=== PATIENT | female | born 1970 | race Caucasian/White ===

== ENCOUNTER 2016-03-08 13:17 | Emergency (ER) | payer OTHER ==
[~2016-03-08 13:17] MED LIST: ASPIRIN PO; CIMETIDINE PO; GLUC1000 OR; IBUP600T OR; OMEPPOW18 PO; SIMV40TA2 OR; VICO5TAB OR
--- NOTE | 2016-03-08 14:11 | REP ---
Clinical: Trauma. Technique: Internal rotation, external rotation, and Y view. Findings: Widening to the acromioclavicular joint with periarticular calcifications as well as calcification overlying the humeral tuberosity is similar to chest x-ray dated 03/31/2013 and represents degenerative changes and calcific tendinopathy. There is no evidence for acute fracture or dislocation. Impression: Degenerative changes and evidence for calcific tendinopathy. No acute fracture or dislocation. Signed by Tom Shea MD 03/08/2016 02:03 P
[2016-03-08] MEDS ORDERED: PERCOCET 5MG/325MG TAB As Ordered ONE (14:13)
[2016-03-08] MEDS ORDERED: KETOROLAC 30 MG/ML VIAL (J1885) As Ordered ONE (14:13)
--- NOTE | 2016-03-08 14:46 | EDDOCDS ---
Physician Documentation [facility] Name: Court Nelson Age: 45 yrs Sex: Female : 1970 Arrival Date: 03/08/2016 Time: 13:17 Bed 7 Private MD: Deny Anaya D Disposition: 03/08/16 14:34 Discharged to Home/Self Care. Impression: Calcific tendinitis of left shoulder - - bursitis left shoulder. - Condition is Stable. - Discharge Instructions: Tendinitis, Calcific Tendinitis, Heat Therapy. - Prescriptions for Naprosyn 500 mg Oral Tablet - take 1 tablet by ORAL route 2 times per day take with food; 30 tablet. Percocet 5- 325 mg Oral Tablet - take 1 tablet by ORAL route every 6 hours As needed MDD: 4 tabs; 12 tablet. - Medication Reconciliation, Local Pharmacy Hours form. - Follow up: Deny Anaya; When: 1 week. Follow up: Orthopaedics, [facility]; When: Call to arrange an appointment. - Problem is new. - Symptoms are unchanged. Historical: - Allergies: Avelox (Swelling); Morphine (Vomit); - Home Meds: 1. none - PMHx: none; - PSHx: ; Right femur repair; Hysterectomy; Gastric Bypass; - Social history: Smoking status: Patient states was never smoker of tobacco. No barriers to communication noted, The patient speaks fluent Turkish, Speaks appropriately for age. - Family history: Not pertinent. - : The pt / caregiver states he / she is not on anticoagulants. Home medication list is obtained from the patient. - Exposure Risk Screening:: None identified. 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 5 in. (165.10 cm) (R); Pain 5/10; 14:37 Pain 2/10; ck1 14:37 Pain 2/10; ck1 14:45 BP 119 / 75; Pulse 59; Resp 18; Temp 97.0(O); Pulse Ox 99% on R/A; Pain 2/10; ck1 13:18 Body Mass Index 27.79 (75.75 kg, 165.10 cm) elp MDM: 13:47 Shoulder, Complete Ordered. EDMS 14:10 ketorolac 60 mg IM once ordered. sd1 14:10 oxyCODONE-acetaminophen 5 mg-325 mg 1 tabs PO once ordered. sd1 14:30 Financial registration complete. mm15 14:40 [facility] Payment Agreement was scanned into [employer] and attached to record. mm15 Administered Medications: 14:17 Drug: ketorolac 60 mg [ketorolac 30 mg/mL (1 mL) injection solution (2 mL)] Route: IM; rs3 Site: left gluteus; 14:37 Follow up: Pain 2/10 Adult; Response: No Adverse Reaction; Pain is decreased ck1 14:17 Drug: oxyCODONE-acetaminophen 1 tabs [oxycodone-acetaminophen 5 mg-325 mg tablet (1 rs3 tabs)] Route: PO; 14:37 Follow up: Pain 2/10 Adult; Response: Confirmed pt not driving.; No Adverse Reaction; ck1 Pain is decreased Signatures: Dispatcher [employer] EDMS Liz Horton MD MD sd1 Van Bah RN RN Fior Camacho RN RN ck1 Yasmany Quinn mm15 Radha Hernandez RN rs3 The chart was reviewed and I authenticate all verbal orders and agree with the evaluation and treatment provided.Attachments: 14:40 [facility] Payment Agreement mm15 MTDD
--- NOTE | 2016-03-08 14:46 | EDDOCDS ---
Nurse's Notes [facility] Name: Court Nelson Age: 45 yrs Sex: Female : 1970 Arrival Date: 03/08/2016 Time: 13:17 Bed 7 Private MD: Deny Anaya D Diagnosis: Calcific tendinitis of left shoulder-- bursitis left shoulder Presentation: 03/08 13:30 Presenting complaint: Patient states: was shoveling Thursday and injured left shoulder. bcj denies fall on shoulder. pain increased with lifting / rotation of arm. denies other injuries. Adult Sepsis Screening: The patient does not have new or worsening altered mentation. Systolic blood pressure is greater than 100. Patient has a qSOFA score of 0- Negative Sepsis Screen. Suicide/Homicide risk assessment- the patient denies having any suicidal and/or homicidal ideations and does not present with any other emotional, behavioral or mental health complaints. Status: Patient is not a special service representative or dependent. Transition of care: patient was not received from another setting of care. 13:30 Acuity: SILVIA Level 4 bcj 13:30 Method Of Arrival: Walkin/Carried/Asstd bcj Triage Assessment: 13:33 General: Appears in no apparent distress, comfortable, Behavior is cooperative. Pain: bcj Location: anterior aspect of left shoulder Pain currently is 5 out of 10 on a pain scale. HIV screening NA for this visit Offered previously. 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 none - PMHx: none; - PSHx: ; Right femur repair; Hysterectomy; Gastric Bypass; - Social history: Smoking status: Patient states was never smoker of tobacco. No barriers to communication noted, The patient speaks fluent Mohawk, Speaks appropriately for age. - Family history: Not pertinent. - : The pt / caregiver states he / she is not on anticoagulants. Home medication list is obtained from the patient. - Exposure Risk Screening:: None identified. Screenin:36 Screening information is obtained from the patient. Fall risk: No risks identified. ck1 Assistance ADL's: requires no assistance with activities of daily living. Abuse/DV Screen: The patient / caregiver reports he/she is: not in a situation that causes fear, pain or injury. Nutritional screening: No deficits noted. Advance Directives: Currently, there is no health care proxy. home support is adequate. Assessment: 14:36 General: Appears in no apparent distress, comfortable, Behavior is appropriate for age, ck1 cooperative. Pain: Location: left shoulder Pain currently is 2 out of 10 on a pain scale. Neurological: No deficits noted. Derm: Skin is intact, is healthy with good turgor, Skin is pink, warm & dry. Musculoskeletal: Circulation, motion, and sensation intact Range of motion intact in all extremities. Vital Signs: 13:18 BP 129 / 76; Pulse 64; Resp 16; Temp 98.9; Pulse Ox 100% on R/A; Weight 75.75 kg (R); elp Height 5 ft. 5 in. (165.10 cm) (R); Pain 5/10; 14:37 Pain 2/10; ck1 14:37 Pain 2/10; ck1 14:45 BP 119 / 75; Pulse 59; Resp 18; Temp 97.0(O); Pulse Ox 99% on R/A; Pain 2/10; ck1 13:18 Body Mass Index 27.79 (75.75 kg, 165.10 cm) [facility] Vitals: 13:18 Log In Time: March 08, 2016 at 13:16. [facility] ED Course: 13:18 Patient visited by Cristel Chandler PCA. elp 13:18 Deny Anaya is Private Physician. elp 13:18 Patient moved to Waiting elp 13:19 Patient visited by Cristel Chandler PCA. elp 13:20 Patient moved to Pre RCE elp 13:32 Triage Initiated bcj 13:34 Patient visited by Van Bah, RN. bcj 13:45 Fior Ayala,RN is Primary Nurse. ms18 13:45 Patient moved to 7 ms18 13:59 Liz Horton MD is Attending Physician. sd1 14:03 Patient visited by Liz Horton MD. sd1 14:23 Shoulder, Complete Returned. EDMS 14:33 Deny Anaya is Referral Physician. sd[facility] sd[facility] 14:34 Patient visited by Fior Ayala RN. ck1 14:37 The patient / caregiver is instructed regarding the plan of care and ED course. ck1 14:37 No IV's were initiated during this patient's visit. No procedures done that require ck1 assistance. 14:40 [facility] Payment Agreement was scanned into [employer] and attached to record. mm15 Administered Medications: 14:17 Drug: ketorolac 60 mg [ketorolac 30 mg/mL (1 mL) injection solution (2 mL)] Route: IM; rs3 Site: left gluteus; 14:37 Follow up: Pain 2/10 Adult; Response: No Adverse Reaction; Pain is decreased ck1 14:17 Drug: oxyCODONE-acetaminophen 1 tabs [oxycodone-acetaminophen 5 mg-325 mg tablet (1 rs3 tabs)] Route: PO; 14:37 Follow up: Pain 2/10 Adult; Response: Confirmed pt not driving.; No Adverse Reaction; ck1 Pain is decreased Order Results: Radiology Order: Shoulder, Complete Test: Shoulder, Complete REASON FOR EXAMINATION: Trauma; Clinical: Trauma.; ; Technique: Internal rotation, external rotation, and Y view.; ; Findings:; Widening to the acromioclavicular joint with periarticular calcifications as well; as calcification overlying the humeral tuberosity is similar to chest x-ray dated; 03/31/2013 and represents degenerative changes and calcific tendinopathy. There; is no evidence for acute fracture or dislocation.; ; Impression:; Degenerative changes and evidence for calcific tendinopathy.; No acute fracture or dislocation.; ; ; Signed by; Tom Shea MD 03/08/2016 02:03 P; Outcome: 14:34 Discharge ordered by Provider. sd1 14:37 Discharge Assessment: Patient awake, alert and oriented x 3. No cognitive and/or ck1 functional deficits noted. Patient verbalized understanding of disposition instructions. patient administered narcotics - yes. Pt provided with safe discharge. No special radiology studies were completed. Property :Personal belongings accompany Pt. 14:37 The following High Risk Discharge criteria are identified: None. Discharged to home ck1 ambulatory. Condition: stable. 14:44 Discharge instructions given to patient, Instructed on discharge instructions, follow ck1 up and referral plans. medication usage, Demonstrated understanding of instructions, medications, Pt was receptive of discharge instructions/ teaching. Prescriptions given X 2. 14:45 Patient left the ED. ck1 Signatures: Dispatcher [employer] EDMS Liz Horton MD MD sd1 Van Bah, RN RN Fior CamachoRN RN ck1 Radha Hernandez RN RN rs3 Yasmany Quinn mm15 Cristel Chandler, MICHELLE CHILD CARE WORKER Kim Rabago RN RN ms18 MTDD
--- NOTE | 2016-03-10 15:46 | EDDOCDS ---
Nurse's Notes [facility] Name: Court Nelson Age: 45 yrs Sex: Female : 1970 Arrival Date: 03/08/2016 Time: 13:17 Bed 7 Private MD: Deny Anaya D Diagnosis: Calcific tendinitis of left shoulder-- bursitis left shoulder Presentation: 03/08 13:30 Presenting complaint: Patient states: was shoveling Thursday and injured left shoulder. bcj denies fall on shoulder. pain increased with lifting / rotation of arm. denies other injuries. Adult Sepsis Screening: The patient does not have new or worsening altered mentation. Systolic blood pressure is greater than 100. Patient has a qSOFA score of 0- Negative Sepsis Screen. Suicide/Homicide risk assessment- the patient denies having any suicidal and/or homicidal ideations and does not present with any other emotional, behavioral or mental health complaints. Status: Patient is not a auto service writer or dependent. Transition of care: patient was not received from another setting of care. 13:30 Acuity: SILVIA Level 4 bcj 13:30 Method Of Arrival: Walkin/Carried/Asstd bcj Triage Assessment: 13:33 General: Appears in no apparent distress, comfortable, Behavior is cooperative. Pain: bcj Location: anterior aspect of left shoulder Pain currently is 5 out of 10 on a pain scale. HIV screening NA for this visit Offered previously. 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 none - PMHx: none; - PSHx: ; Right femur repair; Hysterectomy; Gastric Bypass; - Social history: Smoking status: Patient states was never smoker of tobacco. No barriers to communication noted, The patient speaks fluent French, Speaks appropriately for age. - Family history: Not pertinent. - : The pt / caregiver states he / she is not on anticoagulants. Home medication list is obtained from the patient. - Exposure Risk Screening:: None identified. Screenin:36 Screening information is obtained from the patient. Fall risk: No risks identified. ck1 Assistance ADL's: requires no assistance with activities of daily living. Abuse/DV Screen: The patient / caregiver reports he/she is: not in a situation that causes fear, pain or injury. Nutritional screening: No deficits noted. Advance Directives: Currently, there is no health care proxy. home support is adequate. Assessment: 14:36 General: Appears in no apparent distress, comfortable, Behavior is appropriate for age, ck1 cooperative. Pain: Location: left shoulder Pain currently is 2 out of 10 on a pain scale. Neurological: No deficits noted. Derm: Skin is intact, is healthy with good turgor, Skin is pink, warm & dry. Musculoskeletal: Circulation, motion, and sensation intact Range of motion intact in all extremities. Vital Signs: 13:18 BP 129 / 76; Pulse 64; Resp 16; Temp 98.9; Pulse Ox 100% on R/A; Weight 75.75 kg (R); elp Height 5 ft. 5 in. (165.10 cm) (R); Pain 5/10; 14:37 Pain 2/10; ck1 14:37 Pain 2/10; ck1 14:45 BP 119 / 75; Pulse 59; Resp 18; Temp 97.0(O); Pulse Ox 99% on R/A; Pain 2/10; ck1 13:18 Body Mass Index 27.79 (75.75 kg, 165.10 cm) [facility] Vitals: 13:18 Log In Time: March 08, 2016 at 13:16. [facility] ED Course: 13:18 Patient visited by Cristel Chandler PCA. elp 13:18 Deny Anaya is Private Physician. elp 13:18 Patient moved to Waiting elp 13:19 Patient visited by Cristel Chandler PCA. elp 13:20 Patient moved to Pre RCE elp 13:32 Triage Initiated bcj 13:34 Patient visited by Van Bah, RN. bcj 13:45 Fior Ayala,RN is Primary Nurse. ms18 13:45 Patient moved to 7 ms18 13:59 Liz Horton MD is Attending Physician. sd1 14:03 Patient visited by Liz Horton MD. sd1 14:23 Shoulder, Complete Returned. EDMS 14:33 Deny Anaya is Referral Physician. sd1 14:[facility] sd1 14:34 Patient visited by Fior Ayala RN. ck1 14:37 The patient / caregiver is instructed regarding the plan of care and ED course. ck1 14:37 No IV's were initiated during this patient's visit. No procedures done that require ck1 assistance. 14:40 [facility] Payment Agreement was scanned into [employer] and attached to record. mm15 20:17 T-Sheet-- Draft Copy was scanned into [employer] and attached to record. klr Administered Medications: 14:17 Drug: ketorolac 60 mg [ketorolac 30 mg/mL (1 mL) injection solution (2 mL)] Route: IM; rs3 Site: left gluteus; 14:37 Follow up: Pain 2/10 Adult; Response: No Adverse Reaction; Pain is decreased ck1 14:17 Drug: oxyCODONE-acetaminophen 1 tabs [oxycodone-acetaminophen 5 mg-325 mg tablet (1 rs3 tabs)] Route: PO; 14:37 Follow up: Pain 2/10 Adult; Response: Confirmed pt not driving.; No Adverse Reaction; ck1 Pain is decreased Order Results: Radiology Order: Shoulder, Complete Test: Shoulder, Complete REASON FOR EXAMINATION: Trauma; Clinical: Trauma.; ; Technique: Internal rotation, external rotation, and Y view.; ; Findings:; Widening to the acromioclavicular joint with periarticular calcifications as well; as calcification overlying the humeral tuberosity is similar to chest x-ray dated; 03/31/2013 and represents degenerative changes and calcific tendinopathy. There; is no evidence for acute fracture or dislocation.; ; Impression:; Degenerative changes and evidence for calcific tendinopathy.; No acute fracture or dislocation.; ; ; Signed by; Tom Shea MD 03/08/2016 02:03 P; Outcome: 14:34 Discharge ordered by Provider. sd1 14:37 Discharge Assessment: Patient awake, alert and oriented x 3. No cognitive and/or ck1 functional deficits noted. Patient verbalized understanding of disposition instructions. patient administered narcotics - yes. Pt provided with safe discharge. No special radiology studies were completed. Property :Personal belongings accompany Pt. 14:37 The following High Risk Discharge criteria are identified: None. Discharged to home ck1 ambulatory. Condition: stable. 14:44 Discharge instructions given to patient, Instructed on discharge instructions, follow ck1 up and referral plans. medication usage, Demonstrated understanding of instructions, medications, Pt was receptive of discharge instructions/ teaching. Prescriptions given X 2. 14:45 Patient left the ED. ck1 Signatures: Dispatcher [employer] EDMS Liz Horton MD MD sd1 Van Bah, RN RN bcj Fior AyalaRN RN ck1 Radha Hernandez RN RN rs3 Yasmany Quinn mm15 Cristel Chandler, VISITING TEACHER VISITING TEACHER Kim Rabago RN RN ms18 Martha Gamble Chart Complete MTDD
--- NOTE | 2016-03-10 15:46 | EDDOCDS ---
Physician Documentation [facility] Name: Court Nelson Age: 45 yrs Sex: Female : 1970 Arrival Date: 03/08/2016 Time: 13:17 Bed 7 Private MD: Deny Anaya D Disposition: 03/08/16 14:34 Discharged to Home/Self Care. Impression: Calcific tendinitis of left shoulder - - bursitis left shoulder. - Condition is Stable. - Discharge Instructions: Tendinitis, Calcific Tendinitis, Heat Therapy. - Prescriptions for Naprosyn 500 mg Oral Tablet - take 1 tablet by ORAL route 2 times per day take with food; 30 tablet. Percocet 5- 325 mg Oral Tablet - take 1 tablet by ORAL route every 6 hours As needed MDD: 4 tabs; 12 tablet. - Medication Reconciliation, Local Pharmacy Hours form. - Follow up: Deny Anaya; When: 1 week. Follow up: Orthopaedics, [facility]; When: Call to arrange an appointment. - Problem is new. - Symptoms are unchanged. Historical: - Allergies: Avelox (Swelling); Morphine (Vomit); - Home Meds: 1. none - PMHx: none; - PSHx: ; Right femur repair; Hysterectomy; Gastric Bypass; - Social history: Smoking status: Patient states was never smoker of tobacco. No barriers to communication noted, The patient speaks fluent Kazakh, Speaks appropriately for age. - Family history: Not pertinent. - : The pt / caregiver states he / she is not on anticoagulants. Home medication list is obtained from the patient. - Exposure Risk Screening:: None identified. 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 5 in. (165.10 cm) (R); Pain 5/10; 14:37 Pain 2/10; ck1 14:37 Pain 2/10; ck1 14:45 BP 119 / 75; Pulse 59; Resp 18; Temp 97.0(O); Pulse Ox 99% on R/A; Pain 2/10; ck1 13:18 Body Mass Index 27.79 (75.75 kg, 165.10 cm) elp MDM: 13:47 Shoulder, Complete Ordered. EDMS 14:10 ketorolac 60 mg IM once ordered. sd1 14:10 oxyCODONE-acetaminophen 5 mg-325 mg 1 tabs PO once ordered. sd1 14:30 Financial registration complete. mm15 14:40 [facility] Payment Agreement was scanned into [employer] and attached to record. mm15 20:17 T-Sheet-- Draft Copy was scanned into [employer] and attached to record. klr Administered Medications: 14:17 Drug: ketorolac 60 mg [ketorolac 30 mg/mL (1 mL) injection solution (2 mL)] Route: IM; rs3 Site: left gluteus; 14:37 Follow up: Pain 2/10 Adult; Response: No Adverse Reaction; Pain is decreased ck1 14:17 Drug: oxyCODONE-acetaminophen 1 tabs [oxycodone-acetaminophen 5 mg-325 mg tablet (1 rs3 tabs)] Route: PO; 14:37 Follow up: Pain 2/10 Adult; Response: Confirmed pt not driving.; No Adverse Reaction; ck1 Pain is decreased Signatures: Dispatcher [employer] EDLiz Conway MD MD sd1 Van Bah RN RN Fior Camacho RN RN ck1 Yasmany Quinn mm15 Martha Gamble klr Radha Hernandez RN rs3 The chart was reviewed and I authenticate all verbal orders and agree with the evaluation and treatment provided.Attachments: 14:40 [facility] Payment Agreement mm15 20:17 T-Sheet-- Draft Copy klr Chart Complete MTDD
--- NOTE | 2016-03-10 15:46 | EDDOCDS ---
Physician Documentation [facility] Name: Court Nelson Age: 45 yrs Sex: Female : 1970 Arrival Date: 03/08/2016 Time: 13:17 Bed 7 Private MD: Deny Anaya D Disposition: 03/08/16 14:34 Discharged to Home/Self Care. Impression: Calcific tendinitis of left shoulder - - bursitis left shoulder. - Condition is Stable. - Discharge Instructions: Tendinitis, Calcific Tendinitis, Heat Therapy. - Prescriptions for Naprosyn 500 mg Oral Tablet - take 1 tablet by ORAL route 2 times per day take with food; 30 tablet. Percocet 5- 325 mg Oral Tablet - take 1 tablet by ORAL route every 6 hours As needed MDD: 4 tabs; 12 tablet. - Medication Reconciliation, Local Pharmacy Hours form. - Follow up: Deny Anaya; When: 1 week. Follow up: Orthopaedics, [facility]; When: Call to arrange an appointment. - Problem is new. - Symptoms are unchanged. Historical: - Allergies: Avelox (Swelling); Morphine (Vomit); - Home Meds: 1. none - PMHx: none; - PSHx: ; Right femur repair; Hysterectomy; Gastric Bypass; - Social history: Smoking status: Patient states was never smoker of tobacco. No barriers to communication noted, The patient speaks fluent Luxembourgish, Speaks appropriately for age. - Family history: Not pertinent. - : The pt / caregiver states he / she is not on anticoagulants. Home medication list is obtained from the patient. - Exposure Risk Screening:: None identified. 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 Vital Signs: 13:18 BP 129 / 76; Pulse 64; Resp 16; Temp 98.9; Pulse Ox 100% on R/A; Weight 75.75 kg / 167 elp lbs (R); Height 5 ft. 5 in. (165.10 cm) (R); Pain 5/10; 14:37 Pain 2/10; ck1 14:37 Pain 2/10; ck1 14:45 BP 119 / 75; Pulse 59; Resp 18; Temp 97.0(O); Pulse Ox 99% on R/A; Pain 2/10; ck1 13:18 Body Mass Index 27.79 (75.75 kg, 165.10 cm) elp MDM: 13:47 Shoulder, Complete Ordered. EDMS 14:10 ketorolac 60 mg IM once ordered. sd1 14:10 oxyCODONE-acetaminophen 5 mg-325 mg 1 tabs PO once ordered. sd1 14:30 Financial registration complete. mm15 14:40 [facility] Payment Agreement was scanned into [employer] and attached to record. mm15 20:17 T-Sheet-- Draft Copy was scanned into [employer] and attached to record. klr Administered Medications: 14:17 Drug: ketorolac 60 mg [ketorolac 30 mg/mL (1 mL) injection solution (2 mL)] Route: IM; rs3 Site: left gluteus; 14:37 Follow up: Pain 2/10 Adult; Response: No Adverse Reaction; Pain is decreased ck1 14:17 Drug: oxyCODONE-acetaminophen 1 tabs [oxycodone-acetaminophen 5 mg-325 mg tablet (1 rs3 tabs)] Route: PO; 14:37 Follow up: Pain 2/10 Adult; Response: Confirmed pt not driving.; No Adverse Reaction; ck1 Pain is decreased Signatures: Dispatcher [employer] EDLiz Conway MD MD sd1 Van Bah RN RN Fior Camacho RN RN ck1 Yasmany Quinn mm15 Martha Gamble klr Radha Hernandez RN rs3 The chart was reviewed and I authenticate all verbal orders and agree with the evaluation and treatment provided.Attachments: 14:40 [facility] Payment Agreement mm15 20:17 T-Sheet-- Draft Copy klr Chart Complete MTDD
== END 2016-03-08 14:45 | disposition home or self-care (01) ==
LOC: M ED 13:17
DX: M75.32 Calcific tendinitis of left shoulder (principal); X58.XXXA Exposure to other specified factors, initial encounter; Y92.89 Other specified places as the place of occurrence of the external cause; Y93.H1 Activity, digging, shoveling and raking; Y99.0 Civilian activity done for income or pay; Z90.79 Acquired absence of other genital organ(s); Z98.84 Bariatric surgery status; Z88.1 Allergy status to other antibiotic agents; Z88.5 Allergy status to narcotic agent
CPT/HCPCS: 73030; 96372; 99283; J1885

== ENCOUNTER → 2016-06-12 | Outpatient (REF) | payer OTHER ==
[2016-06-12 11:29] LABS: BASO % 0.7 % (0.0-1.0); EOS # 0.1 K/mm3 (0.0-0.50); EOS % 1.8 % (0.0-3.0); LARGE UNSTAINED CELL # 0.2 K/mm3 (0.0-0.4); LARGE UNSTAINED CELL % 2.5 % (0.0-4.0); LYMPH # 1.5 K/mm3 (1.5-4.5); LYMPH % 25.5 % (24.0-44.0); MEAN CORPUSCULAR HEMOGLOBIN 30.8 pg (27.0-33.0); MEAN CORPUSCULAR VOLUME 93.3 fl (80.0-96.0); MONO # 0.6 K/mm3 (0.0-0.8); MONO % 9.1 % (0.0-5.0); NEUTROPHILS # 3.7 K/mm3 (1.8-7.7); NEUTROPHILS % 60.6 % (36.0-66.0); PLATELET COUNT, AUTOMATED 250 k/mm3 (150-450); RED CELL DISTRIBUTION WIDTH 12.1 % (11.5-14.5)
[2016-06-12 11:38] LABS: ALBUMIN 3.8 GM/DL (3.2-5.2); ALBUMIN/GLOBULIN RATIO 1.15 (1.00-1.93); ALKALINE PHOSPHATASE 90 U/L (45-117); ALT/SGPT 25 U/L (12-78); ANION GAP 6 MEQ/L (8-16); AST/SGOT 14 U/L (15-37); BILIRUBIN,TOTAL 0.6 MG/DL (0.2-1.0); BLOOD UREA NITROGEN 14 MG/DL (7-18); CALCIUM LEVEL 8.5 MG/DL (8.5-10.1); CARBON DIOXIDE LEVEL 31 MEQ/L (21-32); CHLORIDE LEVEL 104 MEQ/L (98-107); CHOLESTEROL LEVEL 158 MG/DL (<200); CREATININE FOR GFR 0.71 MG/DL (0.55-1.02); GLOMERULAR FILTRATION RATE > 60.0 (>58); GLUCOSE, FASTING 95 MG/DL (70-105); POTASSIUM SERUM 4.4 MEQ/L (3.5-5.1); SODIUM LEVEL 141 MEQ/L (136-145); TOTAL PROTEIN 7.1 GM/DL (6.4-8.2); TRIGLYCERIDES LEVEL 70 MG/DL (<150)
[2016-06-12 11:45] LABS: VITAMIN B12 LEVEL 311 PG/ML (247-911)
[2016-06-12 11:46] LABS: FOLATE 11.8 NG/ML (>5.4)
== END ==
LOC: M SFHCCLAY 07:29
PROVIDERS: ATTEND Family Medicine
DX: D64.9 Anemia, unspecified (principal); Z98.84 Bariatric surgery status; E55.9 Vitamin D deficiency, unspecified

== ENCOUNTER → 2016-07-29 | Outpatient (REF) | payer OTHER ==
[2016-07-29 17:33] LABS: BASO % 0.4 % (0.0-1.0); EOS # 0.1 K/mm3 (0.0-0.50); EOS % 0.8 % (0.0-3.0); LARGE UNSTAINED CELL # 0.1 K/mm3 (0.0-0.4); LARGE UNSTAINED CELL % 1.8 % (0.0-4.0); LYMPH % 25.2 % (24.0-44.0); MEAN CORPUSCULAR HGB CONC 34.4 g/dl (32.0-36.5); MONO # 0.5 K/mm3 (0.0-0.8); MONO % 7.2 % (0.0-5.0); NEUTROPHILS # 4.8 K/mm3 (1.8-7.7); NEUTROPHILS % 64.6 % (36.0-66.0); PLATELET COUNT, AUTOMATED 261 k/mm3 (150-450); RED CELL DISTRIBUTION WIDTH 12.4 % (11.5-14.5); WHITE BLOOD COUNT 7.4 K/mm3 (4.0-10.0)
[2016-07-29 17:50] LABS: ALBUMIN 3.8 GM/DL (3.2-5.2); ALBUMIN/GLOBULIN RATIO 1.09 (1.00-1.93); ALKALINE PHOSPHATASE 91 U/L (45-117); ALT/SGPT 28 U/L (12-78); ANION GAP 5 MEQ/L (8-16); AST/SGOT 13 U/L (15-37); BILIRUBIN,TOTAL 0.6 MG/DL (0.2-1.0); BLOOD UREA NITROGEN 10 MG/DL (7-18); CALCIUM LEVEL 8.5 MG/DL (8.5-10.1); CARBON DIOXIDE LEVEL 29 MEQ/L (21-32); CHLORIDE LEVEL 103 MEQ/L (98-107); CREATININE FOR GFR 0.65 MG/DL (0.55-1.02); GLOMERULAR FILTRATION RATE > 60.0 (>58); GLUCOSE, FASTING 96 MG/DL (70-105); POTASSIUM SERUM 3.9 MEQ/L (3.5-5.1); SODIUM LEVEL 137 MEQ/L (136-145); THYROXINE (T4) 9.9 UG/DL (4.5-12.0); TOTAL PROTEIN 7.3 GM/DL (6.4-8.2)
== END ==
LOC: M SFHCCLAY 11:48
PROVIDERS: ATTEND Family Medicine
DX: R06.02 Shortness of breath (principal); Z98.84 Bariatric surgery status

== ENCOUNTER → 2017-03-25 | Outpatient (REF) | payer OTHER | LOC: M SFHCCLAY 11:11 | DX: J06.9 Acute upper respiratory infection, unspecified (principal) ==

== ENCOUNTER 2017-03-27 11:32 | Emergency (ER) | payer OTHER ==
[2017-03-27 13:18] LABS: INFLUENZA A AMPLIFICATION NEGATIVE (NEGATIVE); INFLUENZA B AMPLIFICATION NEGATIVE (NEGATIVE)
== END 2017-03-27 13:51 | disposition home or self-care (01) ==
LOC: M ED 11:32
DX: J06.9 Acute upper respiratory infection, unspecified (principal); E11.9 Type 2 diabetes mellitus without complications; Z98.0 Intestinal bypass and anastomosis status; Z98.890 Other specified postprocedural states; Z88.1 Allergy status to other antibiotic agents; Z88.5 Allergy status to narcotic agent
CPT/HCPCS: 71046

== ENCOUNTER → 2017-06-15 | Outpatient (REF) | payer OTHER ==
[2017-06-15 11:28] LABS: BASO % 0.7 % (0.0-1.0); EOS # 0.1 10^3/uL (0.0-0.50); EOS % 1.7 % (0.0-3.0); HEMATOCRIT 37.9 % (36.0-47.0); HEMOGLOBIN 12.3 g/dl (12.0-15.5); IMMATURE GRANULOCYTE % 0.2 % (0-3.0); LYMPH # 1.7 10^3/uL (1.5-4.5); LYMPH % 30.1 % (24.0-44.0); MEAN CORPUSCULAR HEMOGLOBIN 30.1 pg (27.0-33.0); MEAN CORPUSCULAR HGB CONC 32.5 g/dl (32.0-36.5); MEAN CORPUSCULAR VOLUME 92.9 fl (80.0-96.0); MONO # 0.5 10^3/uL (0.0-0.8); MONO % 8.3 % (0.0-5.0); NEUTROPHILS # 3.4 10^3/uL (1.8-7.7); PLATELET COUNT, AUTOMATED 303 10^3/uL (150-450); RED BLOOD COUNT 4.08 10^6/uL (4.00-5.40); RED CELL DISTRIBUTION WIDTH 12.7 % (11.5-14.5); WHITE BLOOD COUNT 5.8 10^3/uL (4.0-10.0)
[2017-06-15 11:42] LABS: ALBUMIN 3.8 GM/DL (3.2-5.2); ALBUMIN/GLOBULIN RATIO 1.06 (1.00-1.93); ALKALINE PHOSPHATASE 97 U/L (45-117); ALT/SGPT 21 U/L (12-78); ANION GAP 4 MEQ/L (8-16); AST/SGOT 14 U/L (7-37); BILIRUBIN,TOTAL 0.5 MG/DL (0.2-1.0); BLOOD UREA NITROGEN 15 MG/DL (7-18); CALCIUM LEVEL 8.4 MG/DL (8.5-10.1); CARBON DIOXIDE LEVEL 31 MEQ/L (21-32); CHLORIDE LEVEL 106 MEQ/L (98-107); CREATININE FOR GFR 0.65 MG/DL (0.55-1.30); GLOMERULAR FILTRATION RATE > 60.0 (>58); GLUCOSE, FASTING 92 MG/DL (70-100); IRON (FE) 97 UG/DL (50-170); MAGNESIUM LEVEL 2.5 MG/DL (1.8-2.4); POTASSIUM SERUM 4.4 MEQ/L (3.5-5.1); SODIUM LEVEL 141 MEQ/L (136-145); TOTAL PROTEIN 7.4 GM/DL (6.4-8.2)
[2017-06-15 11:49] LABS: FOLATE 8.7 NG/ML (>5.4)
[2017-06-18 00:06] LABS: VITAMIN D 1,25 DIHYDROXY 52.1 pg/mL (19.9-79.3)
== END ==
LOC: M SFHCCLAY 07:42
DX: Z98.84 Bariatric surgery status (principal); E55.9 Vitamin D deficiency, unspecified; D64.9 Anemia, unspecified
CPT/HCPCS: 82746

== ENCOUNTER 2017-08-16 17:57 | Emergency (ER) | payer OTHER ==
[2017-08-16] MEDS: ADACEL/BOOSTRIX VACCINE (DIPHTH/PERTUSS/ACELL/TETANUS)0.5ML SYR (90715) IM ×2 (19:16)
== END 2017-08-16 20:49 | disposition home or self-care (01) ==
LOC: M ED 17:57
DX: S61.411A Laceration without foreign body of right hand, initial encounter (principal); W25.XXXA Contact with sharp glass, initial encounter; Y92.009 Unspecified place in unspecified non-institutional (private) residence as the place of occurrence of the external cause; Z88.5 Allergy status to narcotic agent; Z88.1 Allergy status to other antibiotic agents
CPT/HCPCS: 90715

== ENCOUNTER → 2018-02-09 | Outpatient (CLI) | payer OTHER ==
[~2018-02-09] MED LIST changes: +FLON1SPR; +MAGICMW SSP; +TESS100C PO; +TYLE-45 PO
--- NOTE | 2018-02-10 05:36 | REP ---
Clinical: Acute lower back pain and sciatica . Technique: AP, lateral, bilateral oblique, and coned-down views. Findings: Alignment and lordosis is maintained. The vertebral bodies including transverse process and spinous processes are intact and there is no evidence for acute fracture / compression injury or subluxation. No evidence for spondylolysis or spondylolisthesis. Moderate degenerative changes include endplate sclerosis and disc space narrowing along with hypertrophic facet changes at L5-S1. Impression: Age-related changes with moderate focal degenerative disc disease at L5-S1.
== END ==
LOC: M CLY 13:54
PROVIDERS: ATTEND Family Medicine
DX: M51.37 Other intervertebral disc degeneration, lumbosacral region (principal); M54.5 Low back pain

== ENCOUNTER 2018-03-29 17:34 | Emergency (ER) | payer MEDICAID, OTHER ==
[~2018-03-29] VITALS: Ht 160 cm; Wt 81.8 kg
[2018-03-29] MEDS ORDERED: APAP500T10 PO (17:39)
[2018-03-29] MEDS ORDERED: ACETAMINOPHEN 325 MG TAB As Ordered ONE (17:42)
[2018-03-29] MEDS ORDERED: ACETAMINOPHEN 325 MG TAB PO ONE (17:45)
[2018-03-29 18:19] LABS: INFLUENZA A AMPLIFICATION NEGATIVE (NEGATIVE); INFLUENZA B AMPLIFICATION NEGATIVE (NEGATIVE)
[2018-03-29 21:09] VITALS: BP 128/72
--- NOTE | 2018-03-29 21:25 | REP ---
CHEST: Two views. There is no evidence of acute infiltrate. No pleural effusion is seen. The heart is normal in size. The mediastinal silhouette is unremarkable. The visualized osseous structures are intact. IMPRESSION: No acute pulmonary disease. Electronically Signed by Baljinder Bryant MD 03/31/2018 01:30 P
== END 2018-03-29 21:12 | disposition home or self-care (01) ==
LOC: M ED 17:34
DX: J06.9 Acute upper respiratory infection, unspecified (principal); R50.9 Fever, unspecified; E11.9 Type 2 diabetes mellitus without complications; E78.5 Hyperlipidemia, unspecified; K21.9 Gastro-esophageal reflux disease without esophagitis; Z98.84 Bariatric surgery status; Z88.5 Allergy status to narcotic agent; Z88.1 Allergy status to other antibiotic agents

== ENCOUNTER → 2018-06-15 | Outpatient (REF) | payer OTHER ==
[~2018-06-15] MED LIST changes: +APAP500T10 PO
[2018-06-15 11:16] LABS: BASO # 0.1 10^3/uL (0.0-0.2); BASO % 0.7 % (0.0-1.0); EOS # 0.2 10^3/uL (0.0-0.50); EOS % 2.5 % (0.0-3.0); HEMATOCRIT 37.9 % (36.0-47.0); HEMOGLOBIN 12.4 g/dl (12.0-15.5); LYMPH # 2.4 10^3/uL (1.5-4.5); LYMPH % 33.1 % (24.0-44.0); MEAN CORPUSCULAR HEMOGLOBIN 30.5 pg (27.0-33.0); MEAN CORPUSCULAR HGB CONC 32.7 g/dl (32.0-36.5); MEAN CORPUSCULAR VOLUME 93.3 fl (80.0-96.0); MONO # 0.7 10^3/uL (0.0-0.8); MONO % 9.9 % (0.0-5.0); NEUTROPHILS # 3.8 10^3/uL (1.8-7.7); NEUTROPHILS % 53.5 % (36.0-66.0); PLATELET COUNT, AUTOMATED 275 10^3/uL (150-450); RED BLOOD COUNT 4.06 10^6/uL (4.00-5.40); WHITE BLOOD COUNT 7.2 10^3/uL (4.0-10.0)
[2018-06-15 12:09] LABS: ALBUMIN 3.7 GM/DL (3.2-5.2); ALT/SGPT 27 U/L (12-78); BILIRUBIN,TOTAL 0.5 MG/DL (0.2-1.0); BLOOD UREA NITROGEN 15 MG/DL (7-18); CALCIUM LEVEL 8.8 MG/DL (8.5-10.1); CARBON DIOXIDE LEVEL 29 MEQ/L (21-32); CHLORIDE LEVEL 105 MEQ/L (98-107); CHOLESTEROL LEVEL 162 MG/DL (<200); CHOLESTEROL RISK RATIO 2.655 (<5); CREATININE FOR GFR 0.73 MG/DL (0.55-1.30); FOLATE 16.2 NG/ML (>5.4); GLOMERULAR FILTRATION RATE > 60.0 (>58); GLUCOSE, FASTING 95 MG/DL (70-100); HDL CHOLESTEROL 61 MG/DL (>40); IRON (FE) 100 UG/DL (50-170); LDL CHOLESTEROL 76 MG/DL (<100); MAGNESIUM LEVEL 2.1 MG/DL (1.8-2.4); NON-HDL-C 101 MG/DL; POTASSIUM SERUM 3.7 MEQ/L (3.5-5.1); SODIUM LEVEL 140 MEQ/L (136-145); TRIGLYCERIDES LEVEL 123 MG/DL (<150); VITAMIN B12 LEVEL 537 PG/ML (247-911)
== END ==
LOC: M SFHCCLAY 07:35
PROVIDERS: ATTEND Family Medicine
DX: Z98.84 Bariatric surgery status (principal)